=== PATIENT | male | born 1975 | race Caucasian/White ===

== ENCOUNTER 2019-04-19 09:34 | Outpatient (CLI) | payer OTHER ==
[2019-04-19] MEDS ORDERED: ISOVUE-370 76%-LOCM 1 ML ONE (10:50)
--- NOTE | 2019-04-19 12:58 | CT ---
CT NECK WITH CONTRAST: 04/19/19 Multiple axial tomograms obtained through the neck with IV enhancement. INDICATION: Palpable mass left neck. Area of concern is marked with a skin marker. History of Hodgkin's lymphoma at a younger age. FINDINGS: There is asymmetric enlargement of the left parotid gland. This corresponds to the skin marker and th e area of palpable concern. Both parotid glands are homogeneous and both exhibit homogeneous density. Some minimal haziness and stranding surrounds the left parotid although there is no increased enhanc ement within the left parotid. Parotitis however, is not excluded given this slight peripheral hazine ss and stranding and the enlargement when compared to the right parotid gland. The left submandibular gland is also mildly larger than the right which is of uncertain significance. Thyroid unremarkable. Nasopharynx unremarkable. Base of tongue unremarkable. The palatine tonsils are slightly prominent for age but the Waldeyer's ring is symmetric. Just inferior to the Waldeyer's ring there is asymmetry in the upper hypopharynx with increased soft tissue density on the left producing effacement of the pharynx on the left just above the vallecula. Coronal images show asymmetric soft tissue density at this location measuring in the 1 cm range. Pio mmend direct evaluation to rule out mucosal lesion at this site. The hypopharynx more inferior to this area is unremarkable. The piriform sinuses are symmetric. Laryn x unremarkable. Lymph node levels show nonspecific level I submental and submandibular nodes. Lymph nodes on both grabiel es measure up to 1.0 cm. Mildly enlarged level II lymph node on the left is seen which is asymmetric to the right side. This lymph node on the left measures craniocaudal dimension of 2.6 cm on the coronal exam x 1.4 cm width i n the axial plane. A level III lymph node on the left just inferior to the hyoid measures 7 mm. Nonsp ecific level V lymph nodes posteriorly on the left are seen measuring 7 to 8 mm. [employer] space, parapharyngeal space and retropharyngeal space unremarkable. Carotid space unremarkable. Paranasal sinuses and mastoids appear clear. IMPRESSION: 1. Asymmetric enlargement of the left parotid gland corresponding to the area of palpable concer n. No abnormal enhancement or mass seen within this gland although there is mild peripheral haziness and stranding which could represent parotitis. 2. Also asymmetric enlargement of the left submandibular gland of uncertain significance. 3. Abnormal soft tissue density producing asymmetry in the upper hypopharynx just above the vall ecula on the left. Recommend direct evaluation to rule out mucosal lesion. 4. Mild adenopathy on the left with enlarged level II lymph node on the left and nonspecific lev el I, IV and V nodes on the left. POS: [facility]
== END 2019-04-19 09:35 | disposition home or self-care (01) ==
LOC: BICCT 09:34
PROVIDERS: ATTEND Specialist
DX: R22.1 Localized swelling, mass and lump, neck (principal); E21.0 Primary hyperparathyroidism
CPT/HCPCS: 70491; Q9966